=== PATIENT | female | born 1965 | race Caucasian/White ===

== ENCOUNTER 2025-06-29 12:58 | Emergency (ER) | payer OTHER, SELFPAY ==
--- NOTE | 2025-06-29 13:02 | ED.BACK ---
HPI - Back Pain/Injury <ERIC Najera Last Filed: 06/29/25 18:28> General Chief Complaint: Abdominal Pain Stated Complaint: Back pain 3 weeks Time Seen by Provider: 06/29/25 13:02 History of Present Illness HPI Narrative: Ms. Perez is a very pleasant 59-year-old female with a past medical history of insulin-dependent type 2 diabetes, CAD with stents, HTN, HLD, GERD, IBS, chronic pain who presents to the emergency department for left-sided flank pain and abdominal bloating x3 weeks and worsening bilateral shoulder pain. Patient reports that she does suffer with shoulder pain and left-sided back pain however it is usually intermittent and she does not take any pain medicines however the last 3 weeks it has been persistent and worsening. Left-sided flank pain is exacerbated any time she eats and she has been having abdominal bloating. Today she noticed that both of her shoulders were hurting much worse as well and she is unable to lift them over her head. She denies chest pain, shortness of breath, fevers, chills, nausea, vomiting, diarrhea. She does suffer with chronic constipation. She does use tobacco and marijuana, no alcohol use. Reports prior laparoscopic surgery for endometriosis, no other abdominal surgeries. Related Data Home Medications ?Medication ?Instructions ?Recorded ?Confirmed [ANXIETY MED] ##0 08/13/11 [DEPRESSION MED] ##0 08/13/11 [OTHER MEDS] ##0 08/13/11 simvastatin 10 mg tablet 10 mg PO HS ##0 08/13/11 glipizide 5 mg tablet 5 mg PO BID ##0 11/05/12 Previous Rx's ?Medication ?Instructions ?Recorded hydrocodone 5 mg-acetaminophen 325 1 tab PO Q4-6H PRN pain #12 tabs 06/29/25 mg tablet polyethylene glycol 3350 17 17 g PO DAILY #119 grams 06/29/25 gram/dose oral powder (Miralax) Allergies Allergy/AdvReac Type Severity Reaction Status Date / Time MORPHINE Allergy Unknown Uncoded 11/25/17 12:20 Review of Systems <Marjan Zhao PA-C - Last Filed: 06/29/25 18:28> Review of Systems ROS Unobtainable: All systems reviewed & are unremarkable except as noted in HPI and below Patient History <Marjan Zhao PA-C - Last Filed: 06/29/25 18:28> Social History Smoking Status: Current every day smoker Exam <Marjan Zhao PA-C - Last Filed: 06/29/25 18:28> Narrative Exam Narrative: GENERAL: 59 year old patient appears stated age. Well-developed patient, in no acute distress. HEAD: Atraumatic. Normocephalic. EYES: No scleral icterus. No injection or drainage. NECK: Trachea midline. Cervical ROM intact. CARDIOVASCULAR: Regular rate and rhythm. RESPIRATORY: ?Nonlabored respirations. ?Speaking in clear, full sentences. ?Clear to auscultation. Breath sounds equal bilaterally. No wheezes, rales, or rhonchi. ? GASTROINTESTINAL: Left sided flank tenderness. Negative Dobson's tenderness, McBurney's point tenderness, no rebound or guarding. Bowel sounds are present. EXTREMITIES: Bilateral shoulder pain with both active and passive abduction limited to 90?. 2+ radial pulses bilaterally. BACK: No midline spinal tenderness. NEURO: AOx3. ?Clear speech. ?Moves all 4 extremities appropriately. SKIN: No rash or erythema of visible areas Initial Vital Signs Initial Vital Signs: Vital Signs Temperature 98.6 F 06/29/25 13:05 Pulse Rate 83 06/29/25 13:05 Respiratory Rate 16 06/29/25 13:05 Blood Pressure 150/88 H 06/29/25 13:05 Pulse Oximetry 99 06/29/25 13:05 Oxygen Delivery Method Room Air 06/29/25 13:05 <Traci Gee DO - Last Filed: 07/01/25 00:17> Initial Vital Signs Initial Vital Signs: Vital Signs Temperature 98.6 F 06/29/25 13:05 Pulse Rate 83 06/29/25 13:05 Respiratory Rate 16 06/29/25 13:05 Blood Pressure 150/88 H 06/29/25 13:05 Pulse Oximetry 99 06/29/25 13:05 Oxygen Delivery Method Room Air 06/29/25 13:05 Course <Marjan Zhao PA-C - Last Filed: 06/29/25 18:28> Orders Ordered: Discontinued Medications Ketorolac Tromethamine (Ketorolac 30 Mg/Ml Vial) 15 mg IV NOW ONE Stop: 06/29/25 13:14 Last Admin: 06/29/25 13:26 Dose: 15 mg Documented By: DANNY Ondansetron HCl (Ondansetron 4 Mg/2 Ml Inj) 4 mg IV NOW PRN PRN Reason: Nausea And Vomiting Last Admin: 06/29/25 13:26 Dose: 4 mg Documented By: DANNY Ondansetron HCl (Ondansetron 4 Mg Odt) 4 mg PO NOW PRN PRN Reason: Nausea And Vomiting Vital Signs Vital signs: Vital Signs - 8 hr 06/29/25 13:05 06/29/25 15:05 06/29/25 16:34 Temperature 98.6 F 99 F Pulse Rate 83 72 Respiratory Rate 16 18 20 Blood Pressure 150/88 H 145/73 H Pulse Oximetry 99 96 Oxygen Delivery Method Room Air Room Air <Traci Gee DO - Last Filed: 07/01/25 00:17> Orders Ordered: Discontinued Medications Ketorolac Tromethamine (Ketorolac 30 Mg/Ml Vial) 15 mg IV NOW ONE Stop: 06/29/25 13:14 Last Admin: 06/29/25 13:26 Dose: 15 mg Documented By: DANNY Ondansetron HCl (Ondansetron 4 Mg/2 Ml Inj) 4 mg IV NOW PRN PRN Reason: Nausea And Vomiting Last Admin: 06/29/25 13:26 Dose: 4 mg Documented By: DANNY Ondansetron HCl (Ondansetron 4 Mg Odt) 4 mg PO NOW PRN PRN Reason: Nausea And Vomiting Vital Signs Vital signs: Vital Signs - 8 hr 06/29/25 13:05 06/29/25 15:05 06/29/25 16:34 Temperature 98.6 F 99 F Pulse Rate 83 72 Respiratory Rate 16 18 20 Blood Pressure 150/88 H 145/73 H Pulse Oximetry 99 96 Oxygen Delivery Method Room Air Room Air MDM - Back Pain/Injury <Marjan Zhao PA-C - Last Filed: 06/29/25 18:28> Medical Records Medical records narrative: No records on file. Reviewed printed records patient provided me with including medication list. Lab Data 06/29/25 13:27 06/29/25 13:27 Labs: Lab Results 06/29/25 Range/Units 13:27 WBC 7.5 (4.5-11.0) X10^3/uL RBC 4.54 (4.0-5.2) X10^6/uL Hgb 10.8 L (12.0-16.0) g/dL Hct 33.1 L (36-46) % MCV 72.8 L (80-100) fL MCH 23.8 L (26-34) PG MCHC 32.8 (30-36) % RDW 16.5 H (11.6-14.8) % Plt Count 323 (150-400) X10^3/uL Neut % (Auto) 55.5 (50-75) % Lymph % (Auto) 33.2 (25-40) % Laurens % (Auto) 6.7 (3-14) % Eos % (Auto) 3.7 (2-4) % Baso % (Auto) 0.9 (0-2) % Neut # (Auto) 4200 (9219-5700) /uL Lymph # (Auto) 2500 (3601-9454) /uL Laurens # (Auto) 500 (0-900) /uL Eos # (Auto) 300 (0-450) /uL Baso # (Auto) 100 (0-100) /uL Sodium 139 (137-145) mmol/L Potassium 3.9 (3.4-5.1) mmol/L Chloride 107 (98-107) mmol/L Carbon Dioxide 24 (22-32) mmol/L BUN 12 (7-17) mg/dL Creatinine 0.68 (0.52-1.04) mg/dL Estimated GFR > 60 (>60) mL/min BUN/Creatinine Ratio 17.6 (6-22) Glucose 259 H (70-99) mg/dL Calcium 9.2 (8.4-10.2) mg/dL Total Bilirubin 0.3 (0.2-1.3) mg/dL AST 22 (14-36) IU/L ALT 13 (<35) IU/L Alkaline Phosphatase 85 (38-126) U/L Total Protein 7.2 (6.3-8.2) g/dL Albumin 4.3 (3.5-5.0) g/dL Globulin 2.9 (1.7-4.1) g/dL Albumin/Globulin Ratio 1.5 (1.0-2.8) Lipase 70 (23-300) U/L Urine Dip Bedside Urine Glucose 1000 mg/dl Bedside Urine Bilirubin - Negative Bedside Urine Ketone - Negative Urine Specific Swifton 1.020 Bedside Urine Occult Blood - Negative Bedside Urine pH 6.0 Bedside Urine Protein - Negative Bedside Urine Urobilinogen - Negative Bedside Urine Nitrite - Negative Bedside Urine Leukocytes - Negative Esterase Imaging Data CT C/A/P: Radiologist's Impression: PROCEDURE: CT CHEST ABD PEL W CON INDICATIONS: left flank pain, chronic constipation, abd bloating TECHNIQUE: After the administration of intravenous contrast, 5 mm thick sections acquired from the lung apices to the symphysis. 5 mm coronal and sagittal reformats were performed, with additional 7 mm MIP reformats through the lungs. For radiation dose reduction, the following was used: automated exposure control, adjustment of mA and/or kV according to patient size. COMPARISON: Prior CT chest 01/05/2024, prior CT abdomen 03/29/2024 FINDINGS: Image quality: Excellent. CHEST: Wall thickening of the left ventricle diffusely more than on the prior exam measuring up to 3.2 cm maximal thickness some of which may be artifact related to systolic contraction however hypertrophic cardiomyopathy or other cause could give this appearance and follow-up with cardiology suggested. Consider echocardiogram for further evaluation. Moderate calcifications of the coronary arteries more than expected for patient's age some of which may be artifact related to coronary artery stents similar to the prior exam. Nonspecific wall thickening of the mid and distal esophagus into the stomach, unchanged more than expected for artifact from partial nondistention and esophagitis, gastritis or other process which rarely may include lymphoma or neoplasm could be considered. Follow-up suggested. Correlation with direct visualization endoscopy may be useful. Moderate centrilobular COPD/emphysematous changes unchanged. 5 cm posterior right Bochdalek's type hernia containing fat only unchanged no pneumothorax, no pleural effusion. Lower Neck: No enlarged lymph nodes. Thyroid: No thyroid nodules which require sonographic follow up, per consensus guidelines. Heart: Heart size is normal. No pericardial effusion. Thoracic Vessels: Calcifications of the aortic arch. The aorta and pulmonary arteries demonstrate normal size. Mediastinum and Annalise: No enlarged lymph nodes. ABDOMEN: Wall thickening of the stomach into the duodenum and proximal jejunum gastritis, duodenitis, gastroenteritis or other process. Mild ileus/bowel stasis without bowel obstruction. Normal nondilated appendix. Moderate calcifications of the aorta and iliac vessels. Several small less than 1 mm calcified gallstones with nondistended gallbladder. No CT evidence of cholecystitis. Moderate degenerative changes lower thoracic, lumbar spine. Degenerative changes bilateral hips unchanged. Liver: Normal. Biliary ducts: No biliary dilation. Pancreas: No ductal dilation. Spleen: Size is within normal limits. Adrenal Glands: No adrenal nodules. Kidneys and Ureters: No hydronephrosis. No solid mass. No complex renal cystic lesion which requires follow up. Peritoneum: No abnormal intraperitoneal fluid. No free air. Ventral Wall: No significant ventral hernia. Abdominal Nodes: No retroperitoneal or mesenteric adenopathy by size criteria. Vessels: Aorta and inferior vena cava are normal in size. PELVIS: Pelvic Organs: Unremarkable. Bladder: No bladder wall thickening, accounting for underdistention. Pelvic Nodes: No enlarged lymph nodes. Miscellaneous: No inguinal hernias are seen. IMPRESSION: New wall thickening of the stomach duodenum and proximal jejunum as discussed above. Follow-up suggested. Wall thickening of the left ventricle some of which may be artifact from systolic contraction however hypertrophic cardiomyopathy not excluded and follow-up suggested. Wall thickening mid and distal esophagus unchanged. Cholelithiasis without CT evidence of cholecystitis. Other chronic findings as above. Dictated by: Segundo Stover M.D. on 06/29/2025 at 14:57 Approved by: Segundo Stover M.D. on 06/29/2025 at 15:25 MDM Narrative Medical decision making narrative: 59-year-old female with a past medical history of insulin-dependent type 2 diabetes, CAD with stents, HTN, HLD, GERD, IBS, chronic pain who presents to the emergency department for left-sided flank pain and abdominal bloating x3 weeks and worsening bilateral shoulder pain. On exam the patient is in no acute distress, nontoxic appearing, vital signs appropriate. She does have tenderness to palpation of the left flank/upper quadrant region, no rebound or guarding, no right upper quadrant tenderness. Pain with abduction of shoulders to 90?. Her back/abdominal pain and shoulder pain are separate but both causing significant pain. Given location of pain in the upper back/abdominal region we will obtain CT chest abdomen and pelvis, we will obtain urinalysis, lab work including lipase, treat with Zofran and Toradol this time. Point of care urinalysis is negative for infection. Labs reveal normal WBC count 7.5. Hemoglobin is low at 10.8, patient is not having any melena or hematochezia. Normal CMP with the exception of elevated glucose 259, patient does use insulin and is able to check her glucose at home regularly. Normal lipase 70. Shoulder x-rays reveal arthritis. Suspect patient is developing possible adhesive capsulitis, recommended follow up with Orthopedics, continued range of motion voiding immobility. CT reveals wall thickening of the stomach duodenum proximal jejunum, mid and distal esophagus. Cholelithiasis without cholecystitis. Possible thickening of the left ventricle which may be artifact or hypertrophic cardiomyopathy. Printed discussed all results with the patient and her daughter at the bedside. She is already taking pantoprazole. Recommended decreasing spicy food, NSAIDs, alcohol, following up with PCP for referral for endoscopy. Also recommended adding daily MiraLax, using Ledbetter as needed for severe breakthrough pain with the understanding that this will contribute to constipation. Overall advised patient follow up with Orthopedics for her shoulders but more urgently follow up with PCP for a referral to General surgery/GI for upper endoscopy and elective cholecystectomy. Discussed decrease spicy foods and diet and decrease fatty food. Patient verbalized understanding of all information agreeable with the plan. Abdominal exam is benign at this time. She is tolerating p.o. and stable for discharge home. <Traci Gee, DO - Last Filed: 07/01/25 00:17> Lab Data Labs: Lab Results 06/29/25 Range/Units 13:27 WBC 7.5 (4.5-11.0) X10^3/uL RBC 4.54 (4.0-5.2) X10^6/uL Hgb 10.8 L (12.0-16.0) g/dL Hct 33.1 L (36-46) % MCV 72.8 L (80-100) fL MCH 23.8 L (26-34) PG MCHC 32.8 (30-36) % RDW 16.5 H (11.6-14.8) % Plt Count 323 (150-400) X10^3/uL Neut % (Auto) 55.5 (50-75) % Lymph % (Auto) 33.2 (25-40) % Laurens % (Auto) 6.7 (3-14) % Eos % (Auto) 3.7 (2-4) % Baso % (Auto) 0.9 (0-2) % Neut # (Auto) 4200 (6242-4776) /uL Lymph # (Auto) 2500 (6161-8505) /uL Laurens # (Auto) 500 (0-900) /uL Eos # (Auto) 300 (0-450) /uL Baso # (Auto) 100 (0-100) /uL Sodium 139 (137-145) mmol/L Potassium 3.9 (3.4-5.1) mmol/L Chloride 107 (98-107) mmol/L Carbon Dioxide 24 (22-32) mmol/L BUN 12 (7-17) mg/dL Creatinine 0.68 (0.52-1.04) mg/dL Estimated GFR > 60 (>60) mL/min BUN/Creatinine Ratio 17.6 (6-22) Glucose 259 H (70-99) mg/dL Calcium 9.2 (8.4-10.2) mg/dL Total Bilirubin 0.3 (0.2-1.3) mg/dL AST 22 (14-36) IU/L ALT 13 (<35) IU/L Alkaline Phosphatase 85 (38-126) U/L Total Protein 7.2 (6.3-8.2) g/dL Albumin 4.3 (3.5-5.0) g/dL Globulin 2.9 (1.7-4.1) g/dL Albumin/Globulin Ratio 1.5 (1.0-2.8) Lipase 70 (23-300) U/L Urine Dip Bedside Urine Glucose 1000 mg/dl Bedside Urine Bilirubin - Negative Bedside Urine Ketone - Negative Urine Specific Swifton 1.020 Bedside Urine Occult Blood - Negative Bedside Urine pH 6.0 Bedside Urine Protein - Negative Bedside Urine Urobilinogen - Negative Bedside Urine Nitrite - Negative Bedside Urine Leukocytes - Negative Esterase Discharge Plan Departure Patient Disposition: Home Clinical Impression: Gastritis and duodenitis, Microcytic anemia, Hyperglycemia Cholelithiasis Qualifiers: Cholelithiasis location: other site Biliary obstruction: without biliary obstruction Qualified Code(s): K80.80 - Other cholelithiasis without obstruction Arthritis of shoulder Qualifiers: Laterality: bilateral Qualified Code(s): M19.011 - Primary osteoarthritis, right shoulder Instructions: DI for Gallstones, DI for Gastritis Activity Restrictions/Additional Instructions: Dear Ms. Perez, Thank you for coming to the emergency department. Today you were evaluated for bilateral shoulder pain and left-sided mid back pain. Your workup today revealed thickening and inflammation of the esophagus, stomach and small intestine and is extremely important that you follow up with your primary care doctor to have an upper endoscopy performed. You also have gallstones in your gallbladder. Your x-rays showed arthritis in both of your shoulders. At this time it is very important that you continue taking your pantoprazole as previously prescribed, avoid spicy and fatty foods, alcohol, and nonsteroidal anti-inflammatory drugs such as ibuprofen/Advil/Motrin. I would like you to start taking daily MiraLax to help prevent and treat constipation and I would also like you to take the prescribed hydrocodone as needed for severe breakthrough pain with the understanding that this will contribute to constipation. It is important that you follow up with orthopedics for your shoulder arthritis and a general surgeon for your gallbladder and stomach concerns. Please return to the emergency department if you develop severe pain, fevers, persistent vomiting, yellowing of the skin, black or bloody stool, or any other concerns. You have been prescribed a short course of narcotic medications. These are potentially dangerous and addictive medications that should be used carefully. While on these medications you cannot drive or operate heavy machinery. Additionally, you cannot sign legal documents or perform any duties such as this. Many people get constipated on narcotic medications so it would be advisable to discuss stool softeners with the pharmacist when you olive picker your prescription. Please understand that we cannot provide further refills of narcotics or controlled substances through the ED and your pain management will need to be through your Primary Care Provider Please follow up with your primary care doctor within the next 2-3 days for ER follow-up. (If you do not have a PCP you can call [phone]. ?to schedule an appointment with an [facility] Primary Care Provider) IF YOU DEVELOP ANY NEW OR WORSENING SYMPTOMS, RETURN TO THE ER! Please read the attached instructions, they highlight more specific treatments and interventions for you at home. Thank you for letting me participate in your care, Marjan Zhao PA-C Prescriptions: New hydrocodone-acetaminophen 5-325 mg tablet 1 tab PO Q4-6H PRN (Reason: pain) Qty: 12 0RF polyethylene glycol 3350 [Miralax] 17 gram/dose powder 17 g PO DAILY Qty: 119 0RF No Action simvastatin 10 MG tablet 10 mg PO HS Qty: 0 [ANXIETY MED] Qty: 0 [DEPRESSION MED] Qty: 0 [OTHER MEDS] Qty: 0 glipizide 5 MG tablet 5 mg PO BID Qty: 0 Referrals: Fabrice Foote MD [Primary Care Provider, Pain Management] Stand Alone Forms: Patient Portal/API ED Sign-out <Traci Gee, - Last Filed: 07/01/25 00:17> Cosign ED Attending Cosluis manuelature Attestation: I was immediately available in the department for consultation.
[2025-06-29 13:05] VITALS: BP 150/88; PULSE 83; RESP 16; TEMP 37; O2SAT 99
--- NOTE | 2025-06-29 13:11 | DI.CT.S_ITS ---
PROCEDURE: CT CHEST ABD PEL W CON INDICATIONS: left flank pain, chronic constipation, abd bloating TECHNIQUE: After the administration of intravenous contrast, 5 mm thick sections acquired from the lung apices to the symphysis. 5 mm coronal and sagittal reformats were performed, with additional 7 mm MIP reformats through the lungs. For radiation dose reduction, the following was used: automated exposure control, adjustment of mA and/or kV according to patient size. COMPARISON: Prior CT chest 01/05/2024, prior CT abdomen 03/29/2024 FINDINGS: Image quality: Excellent. CHEST: Wall thickening of the left ventricle diffusely more than on the prior exam measuring up to 3.2 cm maximal thickness some of which may be artifact related to systolic contraction however hypertrophic cardiomyopathy or other cause could give this appearance and follow-up with cardiology suggested. Consider echocardiogram for further evaluation. Moderate calcifications of the coronary arteries more than expected for patient's age some of which may be artifact related to coronary artery stents similar to the prior exam. Nonspecific wall thickening of the mid and distal esophagus into the stomach, unchanged more than expected for artifact from partial nondistention and esophagitis, gastritis or other process which rarely may include lymphoma or neoplasm could be considered. Follow-up suggested. Correlation with direct visualization endoscopy may be useful. Moderate centrilobular COPD/emphysematous changes unchanged. 5 cm posterior right Bochdalek's type hernia containing fat only unchanged no pneumothorax, no pleural effusion. Lower Neck: No enlarged lymph nodes. Thyroid: No thyroid nodules which require sonographic follow up, per consensus guidelines. Heart: Heart size is normal. No pericardial effusion. Thoracic Vessels: Calcifications of the aortic arch. The aorta and pulmonary arteries demonstrate normal size. Mediastinum and Annalise: No enlarged lymph nodes. ABDOMEN: Wall thickening of the stomach into the duodenum and proximal jejunum gastritis, duodenitis, gastroenteritis or other process. Mild ileus/bowel stasis without bowel obstruction. Normal nondilated appendix. Moderate calcifications of the aorta and iliac vessels. Several small less than 1 mm calcified gallstones with nondistended gallbladder. No CT evidence of cholecystitis. Moderate degenerative changes lower thoracic, lumbar spine. Degenerative changes bilateral hips unchanged. Liver: Normal. Biliary ducts: No biliary dilation. Pancreas: No ductal dilation. Spleen: Size is within normal limits. Adrenal Glands: No adrenal nodules. Kidneys and Ureters: No hydronephrosis. No solid mass. No complex renal cystic lesion which requires follow up. Peritoneum: No abnormal intraperitoneal fluid. No free air. Ventral Wall: No significant ventral hernia. Abdominal Nodes: No retroperitoneal or mesenteric adenopathy by size criteria. Vessels: Aorta and inferior vena cava are normal in size. PELVIS: Pelvic Organs: Unremarkable. Bladder: No bladder wall thickening, accounting for underdistention. Pelvic Nodes: No enlarged lymph nodes. Miscellaneous: No inguinal hernias are seen. IMPRESSION: New wall thickening of the stomach duodenum and proximal jejunum as discussed above. Follow-up suggested. Wall thickening of the left ventricle some of which may be artifact from systolic contraction however hypertrophic cardiomyopathy not excluded and follow-up suggested. Wall thickening mid and distal esophagus unchanged. Cholelithiasis without CT evidence of cholecystitis. Other chronic findings as above. Dictated by: Segundo Stover M.D. on 06/29/2025 at 14:57 Approved by: Segundo Stover M.D. on 06/29/2025 at 15:25
--- NOTE | 2025-06-29 13:16 | DI.RAD.S_ITS ---
PROCEDURE: XR SHOULDER LT 3V INDICATIONS: arthritis increase pain and limited ROM TECHNIQUE: 3 views of the shoulder were acquired. COMPARISON: None. FINDINGS: Mild degenerative changes left acromioclavicular and glenohumeral joints with mild joint space narrowing. No radiographic evidence of fracture, dislocation, abnormal calcification or high attenuation foreign body. IMPRESSION: Mild degenerative changes. If symptoms persist or worsen, or there is high clinical suspicion of left shoulder abnormality, MRI could be performed. Dictated by: Segundo Stover M.D. on 06/29/2025 at 13:52 Approved by: Segundo Stover M.D. on 06/29/2025 at 13:54
--- NOTE | 2025-06-29 13:16 | DI.RAD.S_ITS ---
PROCEDURE: XR SHOULDER RT 3V INDICATIONS: arthritis increase pain and limited ROM TECHNIQUE: 3 views of the shoulder were acquired. COMPARISON: None. FINDINGS: Bones: Mild degenerative changes in the right acromioclavicular and glenohumeral joints with mild joint space narrowing. No radiographic evidence of fracture dislocation or high attenuation foreign body. IMPRESSION: Mild degenerative changes. If symptoms persist or worsen, or there is high clinical suspicion of right shoulder abnormality, MRI could be performed. Dictated by: Segundo Stover M.D. on 06/29/2025 at 13:51 Approved by: Segundo Stover M.D. on 06/29/2025 at 13:52
[2025-06-29] MEDS: KETOROLAC 30 MG/ML VIAL 15 MG IV (13:26)
[2025-06-29] MEDS: ONDANSETRON 4 MG/2 ML INJ IV (13:26)
[2025-06-29 13:31] LABS: Add Manual Diff / Slide Review NO; Hematocrit 33.1 % (36-46); Hemoglobin 10.8 g/dL (12.0-16.0); Lymphocytes Absolute Auto 2500 /uL (1100-4500); Mean Corpuscular HGB Conc 32.8 % (30-36); Mean Corpuscular Hemoglobin 23.8 PG (26-34); Mean Corpuscular Volume 72.8 fL (80-100); Platelet Count 323 X10^3/uL (150-400)
[2025-06-29 13:46] LABS: Alanine Aminotransferase 13 IU/L (<35); Albumin 4.3 g/dL (3.5-5.0); Albumin Globulin Ratio 1.5 (1.0-2.8); Alkaline Phosphatase 85 U/L (38-126); Blood Urea Nitrogen 12 mg/dL (7-17); Calcium 9.2 mg/dL (8.4-10.2); Carbon Dioxide 24 mmol/L (22-32); Chloride 107 mmol/L (98-107); Estimated Glomerular Filt Rate > 60 mL/min (>60); Globulin 2.9 g/dL (1.7-4.1); Glucose 259 mg/dL (70-99); HEMOLYSIS < 15 (0-50); Lipase 70 U/L (23-300); Potassium 3.9 mmol/L (3.4-5.1); Sodium 139 mmol/L (137-145); Total Protein 7.2 g/dL (6.3-8.2)
[2025-06-29 15:05] VITALS: RESP 18
[2025-06-29 16:34] VITALS: BP 145/73; PULSE 72; RESP 20; TEMP 37.2; O2SAT 96
== END 2025-06-29 16:53 | disposition home or self-care (01) ==
PROVIDERS: Emergency Provider Physician Assistant; Family Provider Family Medicine; PCP Family Medicine
DX: E11.65 Type 2 diabetes mellitus with hyperglycemia (principal); K29.70 Gastritis, unspecified, without bleeding; Z79.4 Long term (current) use of insulin; K29.80 Duodenitis without bleeding; D50.9 Iron deficiency anemia, unspecified; K80.80 Other cholelithiasis without obstruction; M19.011 Primary osteoarthritis, right shoulder; Z86.79 Personal history of other diseases of the circulatory system; I10 Essential (primary) hypertension; Z95.5 Presence of coronary angioplasty implant and graft
CPT/HCPCS: 36415; 71260; 73030; 74177; 80053; 81003; 83690; 85025; 96374; 96375; 99284; J1885; J2405; Q9967